=== PATIENT | male | born 1960 | race Two or more races ===

== ENCOUNTER 2021-04-09 15:01 | Inpatient (IN) | payer OTHER ==
[~2021-04-09] VITALS: Ht 182.9 cm; Wt 117.0 kg
[2021-04-09] MEDS ORDERED: MORPHINE SULFATE 4 MG/ML SYR/VIAL IV ONE (15:30)
[2021-04-09] MEDS ORDERED: ONDANSETRON HCL 4 MG/2 ML VIAL IV ONE (15:30)
[2021-04-09 17:21] LABS: Basophils # (auto) 0.1 10 ^3/uL (0-0.2); Basophils % (auto) 0.6 % (0.0-2.0); Eosinophils # (auto) 0 10 ^3/uL (0-0.8); Eosinophils % (auto) 0.1 % (0.0-7.0); Hematocrit 44.5 % (41.0-53.0); Hemoglobin 14.7 g/dL (13.5-17.5); Lymphocytes # (auto) 1.3 10 ^3/uL (0.4-5.4); Lymphocytes % (auto) 10.8 % (10.0-50.0); Mean Corpuscular Hemoglobin 30.9 pg (28.0-32.0); Mean Corpuscular Volume 93.6 fL (80.0-100.0); Monocytes # (auto) 0.8 10 ^3/uL (0-1.3); Monocytes % (auto) 6.5 % (0.0-12.0); Neutrophils # (auto) 10.2 10 ^3/uL (1.6-8.6); Nucleated Red Blood Cells % 0.1 %; Red Blood Cells 4.76 10^6/uL (4.5-5.90); Red Cell Distribution Width 13.1 % (11.8-14.3); White Blood Cell 12.4 10^3/uL (4.4-10.8)
[2021-04-09 17:46] LABS: Albumin 3.6 g/dL (3.4-5.0); Calcium 9.1 mg/dL (8.5-10.1); Potassium 3.6 mmol/L (3.5-5.1)
[2021-04-09 17:51] LABS: BUN/Creatinine Ratio 9.8; Bilirubin, Total 0.9 mg/dL (0.2-1.0)
[2021-04-09] MEDS ORDERED: CLOPIDOGREL BISULFATE 75 MG TAB PO ONE (19:00)
[2021-04-09] MEDS ORDERED: ASPirin 81 mg TAB PO ONE (19:00)
[2021-04-09] MEDS ORDERED: METO-159 PO (21:46)
[2021-04-09] MEDS ORDERED: DOCUSATE SOD 100 MG CAP PO PRN (23:00)
[2021-04-09] MEDS ORDERED: ACETAMINOPHEN 325 MG TAB PO PRN (23:00)
[2021-04-09] MEDS ORDERED: hydrALAZINE HCL 20 MG/ML VL IV PRN (23:00)
[2021-04-09] MEDS ORDERED: HYDROcodone-ACET 5/325MG TAB PO PRN (23:00)
[2021-04-09] MEDS: SODIUM CHLORIDE 0.9% 1,000 ML IV SCH (23:15)
[2021-04-10] VITALS (8 sets, daily range): BP systolic 117–139; BP diastolic 68–87
[2021-04-10] MEDS ORDERED: NITROGLYCERIN 0.4 MG SL TAB SL PRN
[2021-04-10] MEDS ORDERED: MORPHINE SULFATE INJECTION 2 MG/ML SYRG IV PRN
[2021-04-10] MEDS ORDERED: BENA1TAB20 (01:22)
[2021-04-10] MEDS: MORPHINE SULFATE 4 MG/ML SYR/VIAL IV PRN ×3 (03:03→20:15)
[2021-04-10] MEDS: ONDANSETRON HCL 4 MG/2 ML VIAL IV PRN ×3 (03:12→20:15)
[2021-04-10] MEDS: HEPARIN SODIUM (PORCINE) 5000 UNITS/ML 1ML VIAL SC SCH ×3 (05:37→21:44)
[2021-04-10 05:48] LABS: Basophils # (auto) 0.1 10 ^3/uL (0-0.2); Basophils % (auto) 0.6 % (0.0-2.0); Eosinophils # (auto) 0 10 ^3/uL (0-0.8); Eosinophils % (auto) 0.1 % (0.0-7.0); Hemoglobin 14.4 g/dL (13.5-17.5); Lymphocytes # (auto) 1.7 10 ^3/uL (0.4-5.4); Lymphocytes % (auto) 16.5 % (10.0-50.0); Mean Corpuscular Hemoglobin 32.5 pg (28.0-32.0); Mean Corpuscular Hgb Conc. 35.1 g/dL (32.0-36.0); Mean Corpuscular Volume 92.6 fL (80.0-100.0); Monocytes % (auto) 9.7 % (0.0-12.0); Neutrophils # (auto) 7.7 10 ^3/uL (1.6-8.6); Neutrophils % (auto) 73.1 % (37.0-80.0); Red Blood Cells 4.43 10^6/uL (4.5-5.90); Red Cell Distribution Width 13.4 % (11.8-14.3); White Blood Cell 10.5 10^3/uL (4.4-10.8)
[2021-04-10 05:59] LABS: Calcium 8.9 mg/dL (8.5-10.1); Potassium 3.9 mmol/L (3.5-5.1)
[2021-04-10 06:04] LABS: Albumin 3.3 g/dL (3.4-5.0); Total Protein 6.2 g/dL (6.4-8.2)
[2021-04-10] MEDS: FAMOTIDINE (10MG/ML) 2ML VL IV SCH (09:19)
[2021-04-10] MEDS: ZINC SULFATE 220mg CAP or TAB PO SCH (09:19)
[2021-04-10] MEDS: ASPirin 81 mg TAB PO SCH (09:19)
[2021-04-10] MEDS: MULTIPLE VITAMIN TAB PO SCH (09:20)
[2021-04-10] MEDS: ASCORBIC ACID 500 MG TAB PO SCH ×2 (09:20→21:30)
[2021-04-10] MEDS: METOPROLOL TARTRATE 25 MG TAB PO SCH ×2 (09:20→21:30)
[2021-04-10] MEDS ORDERED: LISINOPRIL 20 MG TAB PO ONE (11:00)
[2021-04-10 11:36] LABS: Cholesterol 192 mg/dL (< 200)
[2021-04-10 11:39] LABS: HDL Cholesterol 38 mg/dL (40-59); LDL Cholesterol 129 mg/dL (< 100); Triglycerides 101 mg/dL (< 150)
[2021-04-10] MEDS: SODIUM CHLORIDE 0.9% 1,000 ML IV SCH (16:21)
[2021-04-10] MEDS ORDERED: ATORVASTATIN 20 MG TAB PO SCH (22:00)
[2021-04-11 05:00] VITALS: BP 107/67
[2021-04-11] MEDS: HEPARIN SODIUM (PORCINE) 5000 UNITS/ML 1ML VIAL SC SCH ×2 (05:00→14:00)
[2021-04-11] MEDS ORDERED: ADENOSINE 98 MG in GIVE UN-DILUTED 0 ML IV STA (08:16)
[2021-04-11] MEDS: SODIUM CHLORIDE 0.9% 1,000 ML IV SCH (08:20)
[2021-04-11 08:53] VITALS: BP 125/76
[2021-04-11 09:00] VITALS: BP 107/70
[2021-04-11] MEDS: ZINC SULFATE 220mg CAP or TAB PO SCH (09:38)
[2021-04-11] MEDS: ASCORBIC ACID 500 MG TAB PO SCH (09:38)
[2021-04-11] MEDS: MULTIPLE VITAMIN TAB PO SCH (09:38)
[2021-04-11] MEDS: FAMOTIDINE (10MG/ML) 2ML VL IV SCH (09:39)
[2021-04-11] MEDS: ASPirin 81 mg TAB PO SCH (09:39)
[2021-04-11] MEDS: METOPROLOL TARTRATE 25 MG TAB PO SCH (10:00)
[2021-04-11] MEDS ORDERED: CLOPIDOGREL BISULFATE 75 MG TAB PO SCH (10:00)
[2021-04-11] MEDS ORDERED: LISINOPRIL 20 MG TAB PO SCH (10:00)
[2021-04-11] MEDS ORDERED: ASPI-378 PO (12:01)
[2021-04-11] MEDS ORDERED: ATO40T PO (12:01)
[2021-04-11 13:00] VITALS: BP 110/72
== END 2021-04-11 15:30 | disposition home or self-care (01) | DRG 282 ==
LOC: EDBD 15:01 → ER 15:01 → TELE 23:53 → TELE-WESTW 04-10 00:56
PROVIDERS: ADMIT Nurse Practitioner Family; ATTEND Family Medicine
DX: I21.4 Non-ST elevation (NSTEMI) myocardial infarction (principal); D72.829 Elevated white blood cell count, unspecified; M54.9 Dorsalgia, unspecified; R73.9 Hyperglycemia, unspecified; I10 Essential (primary) hypertension; Z20.822 Contact with and (suspected) exposure to COVID-19; N28.9 Disorder of kidney and ureter, unspecified; I24.9 Acute ischemic heart disease, unspecified; Z88.2 Allergy status to sulfonamides; Z89.112 Acquired absence of left hand
CPT/HCPCS: 36415; 71045; 78452; 80053; 80061; 83880; 84484; 85025; 87426; 93005; 93017; 93306; 96374; 96375; 96376; G0378; J0153; J2405; J3490